=== PATIENT | female | born 1985 | race Caucasian/White ===

== ENCOUNTER → 2023-07-12 | Emergency (ER) | payer OTHER ==
[~2023-07-12] MED LIST: KETOROLAC 30 MG/ML INJ ONE; MORPHINE 4 MG/ML SYR ONE; ONDANSETRON 4 MG (ODT) TAB ONE
--- NOTE | 2023-07-12 09:19 | EDPHYS ---
Physician Documentation [facility] – [place], [place] Name: Cayden Rivera Age: 37 yrs Sex: Female : 1985 Arrival Date: 07/12/2023 Time: 09:05 Bed IW1 Private MD: ED Physician Juarez Mccarthy HPI: 07/12 09:37 This 37 yrs old Female presents to ER via Ambulatory with complaints of Back Pain. [facility] 09:37 The patient presents with pain that is chronic, with no known mechanism of injury. The 7 symptoms are located in the low back. Onset: The symptoms/episode began/occurred at an unknown time. The pain does not radiate. Associated signs and symptoms: The patient has no apparent associated signs or symptoms. Patient reports history of bulging disc at L1-L2. Denies any new injury but states that she is having a back pain flareup. She reports that what ever was given to her during her last visit helped her. Denies tingling, loss of bowel or bladder, numbness, or gait instability.. Historical: - Allergies: 09:37 NKDA; hb - PSHx: 09:37 tubal ligation; tubes removed; hb ROS: 09:37 Constitutional: Negative for fever, chills, and weight loss, Eyes: Negative for injury, jh7 pain, redness, and discharge, Neck: Negative for injury, pain, and swelling, Cardiovascular: Negative for chest pain, palpitations, and edema, Respiratory: Negative for shortness of breath, cough, wheezing, and pleuritic chest pain, MS/Extremity: Negative for injury and deformity, Skin: Negative for injury, rash, and discoloration, Neuro: Negative for headache, weakness, numbness, tingling, and seizure, 09:37 Back: Positive for pain at rest, pain with movement, 09:37 All other systems are negative, Exam: 09:37 Constitutional: This is a well developed, well nourished patient who is awake, alert, jh7 and in no acute distress. Neck: Trachea midline, no thyromegaly or masses palpated, and no cervical lymphadenopathy. Supple, full range of motion without nuchal rigidity, or vertebral point tenderness. No Meningismus. Cardiovascular: Regular rate and rhythm with a normal S1 and S2. No gallops, murmurs, or rubs. Normal PMI, no JVD. No pulse deficits. Respiratory: Lungs have equal breath sounds bilaterally, clear to auscultation and percussion. No rales, rhonchi or wheezes noted. No increased work of breathing, no retractions or nasal flaring. Skin: Warm, dry with normal turgor. Normal color with no rashes, no lesions, and no evidence of cellulitis. MS/ Extremity: Pulses equal, no cyanosis. Neurovascular intact. Full, normal range of motion. Neuro: Awake and alert, GCS 15, oriented to person, place, time, and situation. Motor strength 5/5 in all extremities. Sensory grossly intact. Normal gait. 09:37 Back: pain, that is moderate, of the lumbar area, left low back and right low back, ROM is painful, with all movement, normal spinal alignment noted, CVA tenderness, is absent, muscle spasm, is not present, 09:37 Neuro: Orientation: to person, place, time \T\ situation. Mentation: is normal, Memory: is normal, Cranial nerves: grossly normal, Cerebellar function: is grossly normal, Motor: is normal, Sensation: is normal, Gait: is steady, Vital Signs: 09:25 BP 124 / 86; Pulse 83; Resp 16; Temp 98.3; Pulse Ox 100% ; Weight 99.79 kg; Height 5 hb ft. 8 in. ; Pain 10/10; 09:25 Body Mass Index 33.45 (99.79 kg, 172.72 cm) hb 09:25 Pain Scale: Adult hb MDM: 09:07 Patient medically screened. [facility] 09:40 Differential diagnosis: chronic back pain, ruptured disc. Data reviewed: vital signs, [facility] nurses notes. I considered the following discharge prescriptions or medication management in the emergency department Medications were administered in the Emergency Department. See MAR. Counseling: I had a detailed discussion with the patient and/or guardian regarding the historical points, exam findings, and any diagnostic results supporting the discharge/admit diagnosis, the need for outpatient follow up, a orthopedic surgeon, to return to the emergency department if symptoms worsen or persist or if there are any questions or concerns that arise at home. Response to treatment: the patient's symptoms have mildly improved after treatment. Administered Medications: 09:36 Drug: Ketorolac IM 60 mg IM once Route: IM; Site: right deltoid; hb 09:36 Drug: morphine IM 4 mg IM once Route: IM; Site: left deltoid; hb 09:36 Drug: Ondansetron Oral Disintegrating Tablet Oral Disintegrating Tablet 4 mg PO once hb Route: PO; Disposition: 09:55 Co-signature as Attending Physician, Juarez Mccarthy MD I reviewed the patient's care rn provided by the Advanced Practice Provider and agree with the diagnosis and treatment plan. Disposition Summary: 07/12/23 09:18 Discharge Ordered Notes: Location: Home [facility] Problem: chronic jh7 Symptoms: are unchanged jh Condition: Stable jh7 Diagnosis - Chronic Lower Back Pain [facility] Followup: [facility] - With: Private Physician - When: 2 - 3 days - Reason: Recheck today's complaints Discharge Instructions: - Discharge Summary Sheet [facility] - Chronic Back Pain [facility] - Managing Chronic Back Pain [facility] Forms: - Work release form hb - Medication Reconciliation Form [facility] - Thank You Letter [facility] - Patient Portal Instructions [facility] - Leadership Thank You Letter [facility] Prescriptions: - Medrol (Zoltan) 4 mg Oral Tablets, Dose Pack - take 1 tablet ORAL route as directed - follow package instructions; 1 packet; [facility] Refills: 0, Product Selection Permitted Signatures: Juarez Mccarthy MD MD rn Baxter, Heather, RN RN hb Hadash, Jennifer, FNP [place] [id number] Corrections: (The following items were deleted from the chart) 09:51 09:37 This 37 yrs old Female presents to ER via Ambulatory with complaints of Back jh7 Pain. [facility]
--- NOTE | 2023-07-12 09:38 | ER ---
Nurse's Notes [facility] Name: Cayden Rivera Age: 37 yrs Sex: Female : 1985 Arrival Date: 07/12/2023 Time: 09:05 Bed IW1 Private MD: Diagnosis: Chronic Lower Back Pain Presentation: 07/12 09:25 Chief complaint: Severe low back pain x 2 days. hb 09:25 Coronavirus screen: At this time, the client does not indicate any symptoms associated hb with coronavirus-19. Ebola Screen: No symptoms or risks identified at this time. Initial Sepsis Screen: Does the patient meet any 2 criteria? No. Patient's initial sepsis screen is negative. Does the patient have a suspected source of infection? No. Patient's initial sepsis screen is negative. Risk Assessment: Do you want to hurt yourself or someone else? Patient reports no desire to harm self or others. Onset of symptoms was July 11, 2023. 09:25 Method Of Arrival: Ambulatory hb 09:25 Acuity: ZAFAR 4 hb Historical: - Allergies: 09:37 NKDA; hb - PSHx: 09:37 tubal ligation; tubes removed; hb Vital Signs: 09:25 BP 124 / 86; Pulse 83; Resp 16; Temp 98.3; Pulse Ox 100% ; Weight 99.79 kg; Height 5 hb ft. 8 in. ; Pain 10/10; 09:25 Body Mass Index 33.45 (99.79 kg, 172.72 cm) hb 09:25 Pain Scale: Adult hb ED Course: 09:06 Patient arrived in ED. ts1 09:07 [facility] Coleman F[facility] jh7 09:07 Juarez Mccarthy MD is Attending Physician. jh7 09:37 Triage completed. hb 09:37 Arm band placed on right wrist. hb Administered Medications: 09:36 Drug: Ketorolac IM 60 mg IM once Route: IM; Site: right deltoid; hb 09:36 Drug: morphine IM 4 mg IM once Route: IM; Site: left deltoid; hb 09:36 Drug: Ondansetron Oral Disintegrating Tablet Oral Disintegrating Tablet 4 mg PO once hb Route: PO; Outcome: 09:18 Discharge ordered by . jh7 09:37 Discharged to home ambulatory, hb 09:37 Condition: stable 09:37 Discharge instructions given to patient, Instructed on discharge instructions, follow up and referral plans. medication usage, Demonstrated understanding of instructions, follow-up care, medications, Prescriptions given X :37 Patient left the ED. Signatures: Brenda Kemp, RN RN Ila Waggoner, PERSONNEL TRAINING OFFICER PERSONNEL TRAINING OFFICER jh7 Naye Saldivar, PAS PAS ts1
[2023-07-12 09:42] VITALS: BP 124/86; TEMP 98.3; O2SAT 100
== END ==
LOC: ER 09:05
DX: M54.50 Low back pain, unspecified (principal)
CPT/HCPCS: 96372; 99284; Q0162

== ENCOUNTER 2024-07-31 10:02 | Emergency (ER) | payer OTHER, SELFPAY ==
[2024-07-31] MEDS ORDERED: NA CHLORIDE 0.9% 1,000 ML ONE (10:31)
[2024-07-31] MEDS ORDERED: LORazepam 2 MG/ML VIAL ONE (10:31)
[2024-07-31 10:49] LABS: Absolute Basophils 0.1 K/uL (0-0.5); Absolute Eosinophils 0.1 K/uL (0-0.5); Absolute Lymphocytes (CBC) 3.2 K/uL (0.7-4.9); Absolute Monocytes 0.5 K/uL (0.1-1.3); Absolute Neutrophil 5.8 K/uL (1.8-8.0); Basophils % 1.1 % (0-1.3); Eosinophils % 0.8 % (0-4.4); Hematocrit 40.8 % (36.0-45.0); Hemoglobin 13.9 g/dL (12.0-15.0); Lymphocytes % 33.2 % (15.3-44.8); MCH 28.2 pg (27.0-35.0); MCV 83.1 fL (80-100); MPV 7.7 fL (7.6-11.3); Monocytes % 4.9 % (3.3-12.3); Platelets 432 thou/uL (152-406); RBC Red Blood Cell Count 4.91 M/uL (3.86-4.86); Red Cell Distribution Width 14.2 % (12.1-15.2)
[2024-07-31 11:04] LABS: Albumin 3.7 g/dL (3.4-5.0); Albumin/Globulin Ratio 0.8 (1.1-1.8); Anion Gap 13.3 mEq/L (5.0-15.0); Globulin 4.4 g/dL (2.3-3.5); Potassium 3.3 mEq/L (3.5-5.1); Protein, Total 8.1 g/dL (6.4-8.2)
--- NOTE | 2024-07-31 11:49 | ER ---
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 patient states that approx one hour before this started she took some "crushed up energy pills" from a co-worker. patient states she then went home to try to relax, but was unable to. Coronavirus screen: At this time, the client does not indicate any symptoms associated with coronavirus-19. Ebola Screen: No symptoms or risks identified at this time. Initial Sepsis Screen: Does the patient meet any 2 criteria? RR > 20 per min. HR > 90 bpm. Does the patient have a suspected source of infection? No. Patient's initial sepsis screen is negative. Risk Assessment: Do you want to hurt yourself or someone else? Patient reports no desire to harm self or others. Onset of symptoms was July 31, 2024. 10:22 Method Of Arrival: Ambulatory ap3 10:22 Acuity: ZAFAR 3 ap3 Triage Assessment: 10:25 General: Appears distressed, Behavior is anxious. Pain: Denies pain. Neuro: Level of ap3 Consciousness is awake, alert, obeys commands, Oriented to person, place, time, situation, Speech is normal. Cardiovascular: Patient's skin is warm and dry. Respiratory: Airway is patent Respiratory effort is even, unlabored, Respiratory pattern is regular, symmetrical, tachypnea. 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 Flu vaccine is not up to date. - Infectious Disease History:: Denies. - Social history:: Smoking status: Reported history of juuling and/or vaping. Screenin:26 [facility] ED Fall Risk Assessment (Adult) History of falling in the last 3 months, ap3 including since admission No falls in past 3 months (0 pts) Confusion or Disorientation No (0 pts) Intoxicated or Sedated No (0 pts) Impaired Gait No (0 pts) Mobility Assist Device Used No (0 pt) Altered Elimination No (0 pt) Score/Fall Risk Level 0 - 2 = Low Risk Oriented to surroundings, Maintained a safe environment, Educated pt \\T\\ family on fall prevention, incl call for assistance when getting out of bed, Assessed \\T\\ reinforced patient's understanding of fall precautions, Hourly rounding (assess needs \\T\\ fall precautionary measures) done, Used ambulatory aids as needed (educated on \\T\\ assisted with), Used gait belt as appropriate. Abuse screen: Denies threats or abuse. Nutritional screening: No deficits noted. Tuberculosis screening: No symptoms or risk factors identified. Assessment: 10:45 General: Appears distressed, Behavior is cooperative, anxious, restless. Pain: ko1 Complains of pain in all over. Neuro: Tingling in right hand, left hand, right arm, left arm, right leg and left leg. Cardiovascular: Reports lightheadedness. Respiratory: No deficits noted. GI: No deficits noted. No signs and/or symptoms were reported involving the gastrointestinal system. : No deficits noted. No signs and/or symptoms were reported regarding the genitourinary system. EENT: No deficits noted. No signs and/or symptoms were reported regarding the EENT system. Derm: No deficits noted. No signs and/or symptoms reported regarding the dermatologic system. Musculoskeletal: No deficits noted. No signs and/or symptoms reported regarding the musculoskeletal system. Vital Signs: 10:22 BP 148 / 92; Pulse 93; Resp 36; Temp 97.6(TE); Pulse Ox 100% on R/A; Weight 89.81 kg; ap3 Height 5 ft. 8 in. ; 10:45 BP 150 / 95; Pulse 66; Resp 15; Pulse Ox 97% on R/A; ko1 10:22 Body Mass Index 30.11 (89.81 kg, 172.72 cm) ap3 ED Course: 10:05 Patient arrived in ED. ra3 10:08 Juanjo Krause FNP-C [facility] dr[facility] 10:08 Kody Terry MD is Attending Physician. dr5 10:25 Triage completed. ap3 10:26 Arm band placed on right wrist. ap3 10:26 Patient has correct armband on for positive identification. Bed in low position. Call ap3 light in reach. Side rails up X 1. Provided Education on: breathing techniques . Client placed on continuous cardiac and pulse oximetry monitoring. NIBP monitoring applied. night monitor on. Pulse ox on. NIBP on. 10:29 Mari Doshi, BALBINA is Primary Nurse. ko1 10:30 Initial lab(s) drawn, by ED staff, sent to lab. Inserted saline lock: 20 gauge in right ko1 antecubital area, using aseptic technique. Blood collected. Flushed with 10 mL NS. 10:43 Test, Serum Sent. ko1 10:43 CMP Sent. ko1 10:43 CBC with Diff Sent. ko1 10:45 Patient requests rest room assistance. ko1 10:45 Assisted to bathroom. ko1 10:45 Door closed. Noise minimized. Lights dimmed. Warm blanket given. Pillow given. ko1 11:15 Patient requests rest room assistance. ko1 11:15 Warm blanket given. Assisted to bathroom. ko1 11:17 No provider procedures requiring assistance completed. ko1 12:19 Report given to BALBINA Kothari. ko1 12:28 IV discontinued, intact, bleeding controlled, No redness/swelling at site. Pressure ap3 dressing applied. Administered Medications: 10:43 Drug: NS 0.9% IV 1000 ml IV at 1000 ml once; to be given as a bolus over 60 minutes ko1 Route: IV; Rate: 1000 ml; Site: right antecubital; 12:18 Follow up: Response: No adverse reaction; IV Status: Completed infusion; IV Intake: ko1 1000ml 11:00 Drug: Ativan IVP 0.5 mg IVP once Route: IVP; Site: right antecubital; ko1 11:15 Follow up: Response: No adverse reaction; Anxiety decreased ko1 Medication: 11:16 VIS not applicable for this client. ko1 Intake: 12:18 IV: 1000ml; Total: 1000ml. ko1 Outcome: 11:48 Discharge ordered by . dr5 12:27 Discharged to home ambulatory, ap3 12:27 Condition: good 12:27 Discharge instructions given to patient, Instructed on discharge instructions, follow up and referral plans. medication usage, Demonstrated understanding of instructions, follow-up care, medications, Prescriptions given X 1, 12:28 Patient left the ED. ap3 Signatures: Luisa De La Garza RN RN ap3 Mari Doshi RN RN [email or web address] Juana Schreiber ra3 Juanjo Krause, HEDGE FUND MANAGER-C HEDGE FUND MANAGER-Cdr5
--- NOTE | 2024-07-31 11:49 | EDPHYS ---
Physician Documentation [facility] Name: Cayden Rivera Age: 38 yrs Sex: Female : 1985 Arrival Date: 07/31/2024 Time: 10:02 Bed 19 Private MD: ED Physician Kody Terry HPI: 07/31 11:50 This 38 yrs old Female presents to ER via Ambulatory with complaints of Panic dr5 attack, Dizziness. 11:50 Onset: The symptoms/episode began/occurred acutely. 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 Patient states that she does not have a history of anxiety. Patient denies chest pain, shortness of breath, nausea, vomiting, diarrhea, abdominal pain, or fever. 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 Flu vaccine is not up to date. - Infectious Disease History:: Denies. - Social history:: Smoking status: Reported history of juuling and/or vaping. ROS: 11:50 Constitutional: as per hpi dr5 Exam: 11:50 Constitutional: This is a well developed, well nourished patient who is awake, alert, dr5 and in no acute distress. Head/Face: Normocephalic, atraumatic. Eyes: Pupils equal round and reactive to light, extra-ocular motions intact. Lids and lashes normal. Conjunctiva and sclera are non-icteric and not injected. Cornea within normal limits. Periorbital areas with no swelling, redness, or edema. Neck: Trachea midline, no thyromegaly or masses palpated, and no cervical lymphadenopathy. Supple, full range of motion without nuchal rigidity, or vertebral point tenderness. No Meningismus. Chest/axilla: Normal chest wall appearance and motion. Nontender with no deformity. No lesions are appreciated. Cardiovascular: Regular rate and rhythm with a normal S1 and S2. Normal PMI, no JVD. No pulse deficits. 11:50 Abdomen/GI: Soft, non-tender, non-distended Back: No spinal tenderness. No costovertebral tenderness. Full range of motion. Skin: Warm, dry with normal turgor. Normal color with no rashes, no lesions, and no evidence of cellulitis. Neuro: Awake and alert, GCS 15, oriented to person, place, time, and situation. Cranial nerves II-XII grossly intact. Motor strength 5/5 in all extremities. Sensory grossly intact. Cerebellar exam normal. Normal gait. 11:50 Respiratory: the patient does not display signs of respiratory distress, Respirations: normal, Breath sounds: are clear throughout, Respiratory rate: Hyperventilation of 26 and speaking in full sentences Vital Signs: 10:22 BP 148 / 92; Pulse 93; Resp 36; Temp 97.6(TE); Pulse Ox 100% on R/A; Weight 89.81 kg; ap3 Height 5 ft. 8 in. ; 10:45 BP 150 / 95; Pulse 66; Resp 15; Pulse Ox 97% on R/A; ko1 10:22 Body Mass Index 30.11 (89.81 kg, 172.72 cm) ap3 MDM: 10:09 Medical Screening Exam initiated dr5 11:50 Differential diagnosis: viral Infection, Panic Attack, Electrolyte Abnormality, KAREEM. dr5 Data reviewed: vital signs, nurses notes. I considered the following discharge prescriptions or medication management in the emergency department Medications were administered in the Emergency Department. See MAR. Care significantly affected by the following Social Determinants of Health: Poor access to healthcare and/or lack of insurance, Poor access to transportation, Problems related to employment. Counseling: I had a detailed discussion with the patient and/or guardian regarding the historical points, exam findings, and any diagnostic results supporting the discharge/admit diagnosis, the presence of at least one elevated blood pressure reading (>120/80) during this emergency department visit, lab results, the need for outpatient follow up, for definitive care, a family practitioner, to return to the emergency department if symptoms worsen or persist or if there are any questions or concerns that arise at home. Medication response: Ativan. Response to treatment: the patient's symptoms have resolved after treatment. ED course: Patient is feeling much better after Ativan and liter bolus. 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 I highly recommended patient make appointment as soon as possible for well woman exam and primary care doctor. Patient returned back to baseline with normal respirations and feeling much better. All questions answered. Patient is agreeable to plan. 07/31 10:22 Order name: CBC with Diff; Complete Time: 11:14 dr5 07/31 10:22 Order name: CMP; Complete Time: 11:14 dr5 07/31 10:23 Order name: Test, Serum; Complete Time: 11:14 dr5 Administered Medications: 10:43 Drug: NS 0.9% IV 1000 ml IV at 1000 ml once; to be given as a bolus over 60 minutes ko1 Route: IV; Rate: 1000 ml; Site: right antecubital; 12:18 Follow up: Response: No adverse reaction; IV Status: Completed infusion; IV Intake: ko1 1000ml 11:00 Drug: Ativan IVP 0.5 mg IVP once Route: IVP; Site: right antecubital; ko1 11:15 Follow up: Response: No adverse reaction; Anxiety decreased ko1 Disposition Summary: 07/31/24 11:48 Discharge Ordered Notes: Location: Home dr5 Condition: Stable dr5 Diagnosis - Hyperventilation dr5 Followup: dr5 - With: Emergency Department - When: As needed - Reason: Worsening of condition Followup: dr5 - With: Private Physician - When: 1 - 2 days - Reason: Recheck today's complaints, Continuance of care, Re-evaluation by your physician Discharge Instructions: - Discharge Summary Sheet dr5 - Panic Attack, [id number] dr5 Forms: - Medication Reconciliation Form dr5 - Patient Portal Instructions dr5 - Leadership Thank You Letter dr5 Prescriptions: - Hydroxyzine HCl 25 mg Oral tablet - take 1 tablet ORAL route every 6 hours As needed; 20 tablet; Refills: 0, dr5 Product Selection Permitted Addendum: 08/03/2024 07:27 Co-signature as Attending Physician, Kody Terry MD I agree with the assessment and c marshall plan of care. Signatures: Dispatcher [employer] Kody Gonzalez MD MD cha Prokisch, Amanda, RN RN ap3 Mari Doshi RN RN ko1 Juanjo Krause, LICENSED MASTER SOCIAL WORKER-C LICENSED MASTER SOCIAL WORKER-Cdr5 Corrections: (The following items were deleted from the chart) 07/31 10:23 10:23 TEST, SERUM+[id number].LAB.[id number] ordered. EDMS EDMS
[2024-07-31 12:51] VITALS: TEMP 97.6
[2024-07-31 12:52] VITALS: BP 150/95; O2SAT 97
== END 2024-07-31 12:28 | disposition home or self-care (01) ==
LOC: ER 10:02
DX: R06.4 Hyperventilation (principal); F17.290 Nicotine dependence, other tobacco product, uncomplicated
CPT/HCPCS: 36415; 80053; 84703; 85025; 96361; 96374; 99285; J7030